=== PATIENT | female | born 1955 | race Caucasian/White ===

== ENCOUNTER 2022-06-04 14:28 | Outpatient (CLI) | payer MEDICARE, SELFPAY ==
--- NOTE | 2022-06-04 14:43 | MM_ITS ---
WS: [id number] BILATERAL 3D TOMOSYNTHESIS DIGITAL SCREENING MAMMOGRAPHY WITH CAD CLINICAL INFORMATION: SCREENING HISTORY: Screening mammogram. No current complaints. COMPARISON: July 2013 TECHNIQUE: Bilateral CC and MLO views. FINDINGS: Scattered fibroglandular densities bilaterally. Punctate and lucent centered calcifications. Vascular calcification. No suspicious focal mass, asymmetry, calcifications, or architectural distortion. No evidence of malignancy. MM/[place] [address] IMPRESSION: BI-RADS: 2-Benign FOLLOW UP: 1 Year Follow-up Recommend return to annual screening mammography.
== END 2022-06-04 14:29 | disposition home or self-care (01) ==
LOC: RAD 14:31
PROVIDERS: Visit Provider Registered Nurse
DX: Z12.31 Encounter for screening mammogram for malignant neoplasm of breast (principal)
CPT/HCPCS: 77063; 77067

== ENCOUNTER 2022-06-08 07:46 | Outpatient (CLI) | payer MEDICARE, SELFPAY ==
--- NOTE | 2022-06-08 | ECG_ITS ---
[facility] Test Date: 2022-06-08 Pat Name: Megan Moya Department: Room: Gender: Female Director Of Corporate Communications: Rylie Javier : 1955 Requested By: Sofía Keene Order Number: [id number] Trudy MD: Jake North M.D. Interpretive Statements NAME OF STUDY: LEXISCAN SESTAMIBI STRESS TEST INDICATION: [Shortness of Breath] Procedure: At the baseline, the blood pressure was 136/84 mmHg with a heart rate of 60 bpm. The electrocardiogram showed normal sinus rhythm, normal axis with normal ST and T's. The Lexiscan was infused over a period of 20 seconds. A total of 0.4 mg of Lexiscan was infused. The stress phase was continued for a total of 5 minutes. Heart rate was at the end of stress phase was 80 bpm and a blood pressure of 167/71 mmHg. The EKG at the peak infusion revealed since normal sinus rhythm with no significant ST-T wave changes. Sestamibi was injected 20 seconds after the Lexiscan infusion. Blood pressure at the end of recovery phase was 158/67 mmHg with a heart rate of 73 bpm. Conclusion: 1. Normal EKG response to Lexiscan infusion 2. No Lexiscan induced chest pain or cardiac arrhythmia. 3. Normal blood pressure and heart rate response. 4. Sestamibi/sestamibi perfusion scan pending; see separate report. Electronically Signed On 06-14-2022 0:16:56 CDT by Jake North M.D. [id number]
[2022-06-08 08:08] VITALS: BMI 21.5
--- NOTE | 2022-06-08 08:10 | NMCV_ITS ---
NM asim perf SPECT r/s* [id number] Megan Moya Age: 67 Gender: F : 1955 Exam Date: 06/08/2022 09:12 Ordering Phys: Sofía Keene Technologist: SHAGGY Larsen Exam Location: [facility] [place] Indications: CP STRESS TEST [facility] IMAGE PROTOCOL Rest/Stress 1 Lexiscan Day Radiopharmaceutical Dose (mCi) Administration Site Administered by Rest: Tc-99m 10.8 IV SHAGGY Larsen Sestamibi Stress:Tc-99m 33.0 IV SHAGGY Larsen Sestamibi Rest: 08-Jun-2022 45 Discovery 630 Stress: 08-Jun-2022 45 Discovery 630 0.4mg Lexiscan. Images obtained in supine and prone position. SPECT RESULTS Technical Quality: Excellent Raw Data Analysis: Normal Image Corrections: No attenuation or motion correction applied Summed Stress Score: 1 Summed Rest Score: 0 Summed Difference Score: 1 PERFUSION FINDINGS Homogenous radiotracer uptake throughout the myocardium. No evidence of ischemia seen. FUNCTIONAL RESULTS (calculated via Gated SPECT) Stress Image LV EF (%): 77 Stress EDV (mL):56 TID: 1.2 Stress ESV (mL):13 FUNCTIONAL FINDINGS: There is normal left ventricular systolic function. IMPRESSIONS 1. Normal myocardial perfusion imaging with no evidence of ischemia. 2. LV systolic function is normal.Chelle North MD (Electronically Signed) Final Date: 08 June 2022 12:15 S
[2022-06-08] MEDS: regadenoson 0.4 Mg/5 ml Syringe IVP (09:45)
[2022-06-08 09:55] VITALS: BP 158/67; PULSE 75
== END 2022-06-08 07:47 | disposition home or self-care (01) ==
LOC: CDL 07:47
PROVIDERS: Visit Provider Registered Nurse
DX: R07.9 Chest pain, unspecified (principal); R06.02 Shortness of breath
CPT/HCPCS: 78452; 93017; A9500; J2785